=== PATIENT | female | born 1985 ===

== ENCOUNTER 2022-09-16 18:12 | Emergency (ER) | payer MEDICAID ==
[~2022-09-16] VITALS: Ht 170.2 cm; Wt 79.5 kg
[2022-09-16 18:33] VITALS: BP 126/69
[2022-09-16 19:19] LABS: CLARITY,URINE CLEAR (Clear); COLOR,URINE YELLOW (Yellow); GLUCOSE, URINE NEGATIVE (Neg); KETONES,URINE NEGATIVE (Neg); LEUKOCYTE ESTERASE ,URINE NEGATIVE (Neg); NITRITES, URINE NEGATIVE (Neg); OCCULT BLOOD,URINE NEGATIVE (Neg); PROTEIN,URINE NEGATIVE (Neg); UROBILINOGEN,URINE 0.2 E.U/dL (0.2-1.0)
[2022-09-16 19:24] LABS: UA COLLECTION TYPE CLN CATCH MIDSTREAM
== END 2022-09-17 01:24 | disposition left against medical advice (07) ==
LOC: ER 18:13
DX: R11.0 Nausea (principal); Z53.21 Procedure and treatment not carried out due to patient leaving prior to being seen by health care provider
CPT/HCPCS: 81003